=== PATIENT | female | born 1980 ===

== ENCOUNTER 2017-10-13 15:43 | Emergency (ER) | payer OTHER, SELFPAY ==
[2017-10-13 15:43] VITALS: BMI 25.5
[2017-10-13 16:05] VITALS: O2SAT 100
--- NOTE | 2017-10-13 17:35 | C.PDOC ---
History Of Present Illness 37 y/o female c/o itchy rash to arms and torso x 1 day; denies any new meds, topical substances or foods. no fevers. denies any swelling to lips, tongue or mouth, no difficulty breathing. Time Seen by Provider: 10/13/17 16:45 Chief Complaint (Nursing): Abnormal Skin Integrity History Per: Patient History/Exam Limitations: no limitations Onset/Duration Of Symptoms: Days (1) Current Symptoms Are (Timing): Still Present Quality Of Symptoms: Itching Severity: Moderate Past Medical History Reviewed: Historical Data, Nursing Documentation, Vital Signs Vital Signs: Last Vital Signs Temp 98.1 F 10/13/17 19:39 Pulse 62 10/13/17 19:39 Resp 18 10/13/17 19:39 BP 104/69 10/13/17 19:39 Pulse Ox 100 10/15/17 19:23 - Medical History PMH: No Chronic Diseases Surgical History: Appendectomy - [facility] Procedures ARTIF RUPT MEMBRANES NEC (07/12/14) EPISIOTOMY (07/12/14) SUTURE VULVAR LACERATION (01/05/13) Family History: States: Unknown Family Hx - Social History Hx Tobacco Use: No Hx Alcohol Use: No Hx Substance Use: No - Immunization History Hx Tetanus Toxoid Vaccination: No Hx Influenza Vaccination: No Hx Pneumococcal Vaccination: No Review Of Systems Constitutional: Negative for: Fever, Chills ENT: Negative for: Mouth Swelling, Throat Pain, Throat Swelling Cardiovascular: Negative for: Chest Pain, Palpitations Respiratory: Negative for: Cough Gastrointestinal: Negative for: Nausea, Vomiting Skin: Positive for: Rash Neurological: Negative for: Weakness, Numbness Physical Exam - Physical Exam Appears: Non-toxic, No Acute Distress Skin: Warm, Dry, Other (diffuse fine papular rash to arms, legs and torso, spares hands and feet. ) Head: Atraumatic, Normacephalic Oral Mucosa: Moist Tongue: Normal Appearing, No Swelling Lips: Normal Appearing, No Swelling Throat: No Erythema, No Exudate Neck: Supple Cardiovascular: Rhythm Regular, No Murmur Respiratory: No Decreased Breath Sounds, No Wheezing Gastrointestinal/Abdominal: Soft, No Tenderness ED Course And Treatment O2 Sat by Pulse Oximetry: 100 Medical Decision Making Medical Decision Making: p[t with fine papular rash that is itchy; txed with prednisone. benadryl; pt is now feeling much better and rash greatly decreased. will d/c home with meds. Disposition Counseled Patient/Family Regarding: Diagnosis, Need For Followup, Rx Given - Disposition Referrals: [facility] [Outside] Disposition: HOME/ ROUTINE Disposition Time: 19:31 Condition: IMPROVED Additional Instructions: Por favor tome los medicamentos segn lo prescrito. El benadryl (difenhidramina ) lo adormece, por lo tanto, no utilice maquinaria o conduzca cuando lo tome. Seguimiento en la clnica mdica. Regrese a la alvarez de emergencias por cualquier sntoma peor. Please take medications as prescribed. The benadryl (diphenhydramine) makes you sleepy, so do not operate machinery or drive when taking it. Follow up in medical clinic. Return to ER for any worse symptoms. Prescriptions: DiphenhydrAMINE [Benadryl] 25 mg PO Q6 #30 cap Famotidine [Pepcid] 20 mg PO DAILY #14 tab predniSONE [predniSONE Tab] 2 tab PO DAILY #8 tab Instructions: Annita (DC) Forms: Gen Discharge Inst Kyrgyz, [facility] (Kyrgyz) Print Language: NAURUAN - Clinical Impression Clinical Impression: Allergic reaction
[2017-10-13 19:39] VITALS: BP 104/69; PULSE 62; RESP 18; TEMP 98.1
== END 2017-10-13 19:46 | disposition home or self-care (01) ==
LOC: C.ER 15:43
DX: T78.40XA Allergy, unspecified, initial encounter (principal)